=== PATIENT | female | born 1940 | race Caucasian/White ===

== ENCOUNTER → 2016-12-14 | Outpatient (REF) | payer MEDICARE, BC | LOC: M LAB REF 17:10 | PROVIDERS: ATTEND Family Medicine | DX: R30.0 Dysuria (principal) ==

== ENCOUNTER → 2017-02-05 | Outpatient (REF) | payer MEDICARE, BC | LOC: M LAB REF 17:25 | PROVIDERS: ATTEND Family Medicine | DX: R30.9 Painful micturition, unspecified (principal) ==

== ENCOUNTER → 2017-04-23 | Outpatient (REF) | payer MEDICARE, BC | LOC: M LAB REF 16:45 | PROVIDERS: ATTEND Family Medicine | DX: R30.9 Painful micturition, unspecified (principal) ==